=== PATIENT | female | born 1980 | race Caucasian/White ===

== ENCOUNTER 2018-05-22 14:26 | Outpatient (REF) | payer BC, SELFPAY ==
[2018-05-22 21:59] LABS: Abs Immature Grans 0.01 k/cumm (0.0-0.09); Absolute Basophil Count 0.05 k/cumm (0.0-0.2); Absolute Eosinophil Count 0.24 k/cumm (0.0-0.7); Absolute Lymphocyte Count 2.43 k/cumm (1.2-3.4); Absolute Monocyte Count 0.46 k/cumm (0.11-0.7); Absolute Neutrophil Count 3.68 k/cumm (1.2-6.7); Basophils % 0.7; Eosinophils % 3.5; HCT 44.1 % (36.0-46.0); HGB 14.5 g/dL (12.0-15.5); Immature Grans % 0.1; Lymphocytes % 35.4; Mean Corp. HGB Concentration 32.9 g/dL (32.0-36.0); Mean Corpuscular Volume 91.1 fL (80-95); Mean Platelet Volume 11.4 fL (8.0-11.0); Monocytes % 6.7; Neutrophils % 53.6; Platelet Count 258 x1000/uL (130-400); RBC 4.84 m/cumm (4.00-5.20); RBC Distribution Width 12.6 % (11.7-14.6); White Blood Cell Count 6.87 k/cumm (4.4-10.8)
[2018-05-22 22:00] LABS: Anion Gap 9.9 mmol/L (3-11); BUN 19 mg/dL (7-18); CO2 28.1 mmol/L (21.0-32.0); CREATININE 0.97 mg/dL (0.55-1.02); Calcium 9.1 mg/dL (8.5-10.1); Chloride 104 mmol/L (98-107); Glucose 103 mg/dL (70-100); Potassium 3.9 mmol/L (3.5-5.1); Sodium 142 mmol/L (136-145)
[2018-05-22 22:40] LABS: Vitamin D 25 Total 40.2 ng/ml (30-100)
== END 2018-05-22 14:46 ==
LOC: NCHCN 14:26
PROVIDERS: PCP Family Medicine; Visit Provider Family Medicine
DX: M21.612 Bunion of left foot (principal); E55.9 Vitamin D deficiency, unspecified
CPT/HCPCS: 80048; 82306; 85025

== ENCOUNTER 2020-11-28 14:16 | Emergency (ER) | payer MEDICAID, SELFPAY ==
[2020-11-28] VITALS (45 sets, daily range): BP systolic 101–127; BP diastolic 42–83; PULSE 78–119; RESP 11–27; TEMP 36.4; O2SAT 95–99
--- NOTE | 2020-11-28 14:30 | RT.EKG_ITS ---
APPROVED REPORT Exam: Resting ECG Reason for Exam: tachycardia Patient Location: E HR:89 bpm ECG Measurements Heart Rate 89 AXIS GA 169 P 44 QRSd 99 QRS -24 QT 364 T 26 QTc 444 Conclusion Sinus rhythm...normal P axis, V-rate 60- 99 Low voltage, precordial leads...precordial leads <1.0mV sinus rhythm at 89, normal axis, no WPW, QTC 444, no HOCM, no STEMI, nondiagnostic EKG
[2020-11-28] MEDS: Normal Saline 1,000 ML 1000 ML IV ×2 (14:45→16:29)
--- NOTE | 2020-11-28 15:00 | W.ED.GENAD ---
Discharge Plan Disposition Patient Disposition: HOME Condition: Stable Discharge Details Clinical Impression: Hypokalemia, Hypomagnesemia, Dehydration, Tingling, Cramping of hands Primary Care Provider: Alicia Castro ED Provider: Levi Snyder Home Meds and New Rx's Prescriptions: Continued methylphenidate HCl 10 mg Tablet 10 mg PO QID RF: 0 Discharge Instructions Instructions: Dehydration (ED), Hypokalemia (ED), Hypomagnesemia (ED) Additional Instructions: Please return immediately to the emergency department if you develop any new or worsening symptoms, if your condition does not improve as expected, or if you become otherwise concerned. It is extremely important that you call soon as possible to make an appointment to be seen in follow-up for this visit by your primary care doctor. Referrals: Alicia Castro [Primary Care Provider] - Discharge Data Discharge Date/Time-TO BE ENTERED AT DEPARTURE: 11/28/20 19:10 Medical Decision Making <Gaye Oneill MD - Last Filed: 12/08/20 18:06> Aliyah Montero is a 40-year-old woman without reported history of major medical problems who presented to emergency department with hand cramping, hand and feet tingling, and lightheadedness. On exam patient appears mildly anxious but is overall well and nontoxic-appearing. Fine tremor bilateral hands. Grossly nonfocal neurologic exam. Concern for dehydration, metabolic/electrolyte derangement, other. Exam/history at this time is not consistent with meningitis, cerebrovascular accident, transverse myelitis, Guillain-Rankin?, sepsis, other acute emergent neurologic pathology. Plan for EKG, chest x-ray, IV placement, screening labs, UA, urine , IV fluid hydration. Will monitor and reassess. Labs reviewed, K 2.6, Mg 1.6. Cr 0.7. Suspect hypokalemia, hypomagnesemia in addition to dehydration as etiology of Pt's symptoms. Will replete, continue IVF hydration. Plan for repeat BMP, Mg after repletion. Pt reassessed, reports feeling significantly improved. Denies any further symptoms. Reports feeling well and back to baseline. I had a lengthy discussion with Pt re: safe alcohol use. Pt signed out to Dr. Snyder at shift change with repeat labs pending. Medical Records Medical records reviewed: Yes I reviewed the patient's medical records. Lab Data Lab results reviewed: Yes I reviewed the patient's lab results. Labs: 11/28/20 15:25 Urine - Reflex from Ua Urine Culture - Final Gram Positive Taty,Mixed Laboratory Tests Range/Units 11/28/20 11/28/20 11/28/20 14:20 15:05 15:25 Sodium Cancelled 142 Potassium Cancelled 2.8 L* Chloride Cancelled 107 Carbon Dioxide Cancelled 24.5 Anion Gap Cancelled 10.5 BUN Cancelled 10 Creatinine Cancelled 0.7 Estimated GFR/1.73 m2 Cancelled >= 60.00 Glucose Cancelled 96 Calcium Cancelled 8.2 L Magnesium Cancelled 1.6 L Total Bilirubin Cancelled 0.5 AST Cancelled 25 ALT Cancelled 33 Alkaline Phosphatase Cancelled 48 Total Protein Cancelled 6.2 L Albumin Cancelled 3.5 Vitamin B12 Cancelled 298 TSH Cancelled 1.34 Urine Color (Yellow) Yellow Urine Clarity (Clear) Cloudy Urine pH (5-8) 6.0 Ur Specific [place] (1.005-1.025) 1.025 Urine Protein (Negative) mg/dL Trace H Urine Ketones (Negative) mg/dL >=160 H Urine Blood (Negative) Negative Urine Nitrite (Negative) Negative Urine Bilirubin (Negative) Negative Urine Urobilinogen (Up TO 0.2) EU/dL 0.2 Ur Leukocyte Esterase (Negative) Negative Urine RBC (0-2) HPF 0-2 Urine WBC (0-5) HPF 3-5 Ur Epithelial Cells (Negative) HPF Few Urine Crystals (Negative) HPF Negative Urine Bacteria (Negative) HPF Many Urine Casts (Negative) LPF Negative Urine Mucus (Negative) Negative Ur Culture Indicated? Yes Urine Glucose (Negative) mg/dL Negative Range/Units 11/28/20 18:15 Sodium 142 Potassium 3.9 D Chloride 109 H Carbon Dioxide 24.6 Anion Gap 8.4 BUN 10 Creatinine 0.6 Estimated GFR/1.73 m2 >= 60.00 Glucose 91 Calcium 8.0 L Magnesium 2.7 H Total Bilirubin AST ALT Alkaline Phosphatase Total Protein Albumin Vitamin B12 TSH Urine Color (Yellow) Urine Clarity (Clear) Urine pH (5-8) Ur Specific [place] (1.005-1.025) Urine Protein (Negative) mg/dL Urine Ketones (Negative) mg/dL Urine Blood (Negative) Urine Nitrite (Negative) Urine Bilirubin (Negative) Urine Urobilinogen (Up TO 0.2) EU/dL Ur Leukocyte Esterase (Negative) Urine RBC (0-2) HPF Urine WBC (0-5) HPF Ur Epithelial Cells (Negative) HPF Urine Crystals (Negative) HPF Urine Bacteria (Negative) HPF Urine Casts (Negative) LPF Urine Mucus (Negative) Ur Culture Indicated? Urine Glucose (Negative) mg/dL ECG Data Attestation: I personally reviewed and interpreted this ECG (s) as follows: Interpretation: EKG shows sinus rhythm at 89, normal axis, no WPW, QTC 444, no HOCM, no STEMI, nondiagnostic EKG <Levi Snyder MD - Last Filed: 11/28/20 19:08> pt now asymptomatic and feels well, repeat electrolytes normalized. Will d/c and have her f/u with pcp, return precautions given HPI <Gaye Oneill MD - Last Filed: 12/08/20 18:06> General Mode of arrival: ambulatory. Date/Time Provider Initiated Documentation: 11/28/20 14:23. Limitations to Documentation: no limitations. Information obtained by: patient, RN notes reviewed and old records reviewed. HPI Narrative: Aliyah Montero is a 40-year-old woman without reported history of major medical problems presenting to the emergency department with chief complaint hand cramping. Patient reports that approximately 30 minutes ago she was driving her car when she felt sudden onset tingling in both of her hands. She then developed tingling in both of her feet. Patient reports that then she felt cramping of her fingers and wrists, with flexion of fingers and wrist on both sides. Patient reports that cramping lasted for a few minutes and then resolved. Patient tingling in her feet also resolved. She reports that she has continued tingling in both her hands, and tremor in both of her hands. She also reports that she feels mildly lightheaded. Patient reports that there were no preceding events in the car, however she noted that it is hot outside and she did feel quite hot while driving before symptoms began. Patient reports that she typically drinks 6-8 drinks per week, however she states that she had 8 drinks or so last night. She slept in a cabin without air conditioning. Patient reports that she typically take methylphenidate 4 times daily, but has not taken any today (patient reports that she does take this medication regularly and does not usually miss days, however forgot to take any today). Patient reports that she has had normal appetite. She denies any pain, fever, shortness of breath, cough, vomiting, diarrhea, localized weakness, rash. Patient reports that she uses marijuana with last use yesterday. She denies tobacco or nicotine use. Related Data Home Medications Medication Instructions Recorded Confirmed methylphenidate HCl 10 mg PO QID 11/28/20 Allergies Allergy/AdvReac Type Severity Reaction Status Date / Time Sulfa (Sulfonamide AdvReac Unverified 11/28/20 14:24 Antibiotics) General Stated Complaint: [facility] ALYSSA: 3 Review of Systems <Gaye Oneill MD - Last Filed: 12/08/20 18:06> Narrative: Constitutional: denies fevers Eyes: denies eye pain ENT: denies ear pain, dental pain, sore throat Cardiovascular: denies chest pain, edema Respiratory: denies SOB, cough GI: denies abdominal pain, vomiting, diarrhea : denies flank pain MSK: denies back pain, neck pain, arthralgias, myalgias, reports finger and wrist cramping as per HPI Skin: denies rash Neuro: denies headaches, localized weakness, reports tingling bilateral hands and feet as per HPI PFSH <Gaye Oneill MD - Last Filed: 12/08/20 18:06> Social History Smoking/Tobacco Use Status: Former Tobacco Use Tobacco: How many years used: 10 Smoking risk assessment performed?: Yes Alcohol Intake: current Alcohol Intake frequency: a few times a week Alcohol type: beer Drug use: Daily Substance use type: marijuana Do you feel safe at home: Yes Do you feel safe in your relationship?: Yes Exam <Gaye Oneill MD - Last Filed: 12/08/20 18:06> Narrative Exam Narrative: Constitutional: well and [id number], pleasant, conversing normally HENT: head atraumatic/normocephalic/normal inspection, mucous membranes moist Eyes: conjunctiva normal, sclera normal, pupils 3mm b/l Neck: no stridor, normal ROM, trachea midline Chest: normal inspection Resp: normal work of breathing, LCTAB Cardio: normal rate, normal rhythm, no murmur appreciated Skin: warm, dry, normal color, no rash Neuro: alert, not altered, cranial nerves intact, motor 5/5 bilateral upper and lower extremities, normal tone, fine tremor bilateral hands Ext: no edema Psych: Somewhat anxious, normal affect, normal behavior Course <Gaye Oneill MD - Last Filed: 12/08/20 18:06> Vital Signs Vital signs: Vital Signs Pulse 119 H 11/28/20 14:16 Respiratory Rate 23 11/28/20 14:16 Blood Pressure 127/42 L 11/28/20 14:16 Pulse Oximetry 98 11/28/20 14:16 Temperature 36.4 C L 11/28/20 14:18 Temperature Source Skin 11/28/20 14:18 Pulse 96 H 11/28/20 14:30 Pulse 105 H 11/28/20 14:31 Respiratory Rate 19 11/28/20 14:31 Respiratory Effort 11/28/20 14:29 Blood Pressure 117/66 11/28/20 14:30 Blood Pressure Mean 77 11/28/20 14:30 Blood Pressure Position Supine 11/28/20 14:18 Pulse Oximetry 99 11/28/20 14:31 Oxygen Delivery Method Room Air 11/28/20 14:18 Oxygen Flow Rate 0 11/28/20 14:18 Lab/Test Results Lab/Test Results: Laboratory Tests Range/Units 11/28/20 14:20 Sodium Cancelled Potassium Cancelled Chloride Cancelled Carbon Dioxide Cancelled Anion Gap Cancelled BUN Cancelled Creatinine Cancelled Estimated GFR/1.73 m2 Cancelled Glucose Cancelled Calcium Cancelled Magnesium Cancelled Total Bilirubin Cancelled AST Cancelled ALT Cancelled Alkaline Phosphatase Cancelled Total Protein Cancelled Albumin Cancelled Vitamin B12 Cancelled TSH Cancelled Sign Out <Gaye Oneill MD - Last Filed: 12/08/20 18:06> Sign Out Data: Sign Out Comment: Pt signed out to Dr. Snyder at time of shift change with med infusions, repeat labs, reassessment pending. Last updated by Gaye Oneill MD at 11/28/20 16:53
--- NOTE | 2020-11-28 15:15 | DI.RAD_ITS ---
Exam(s) XR PORTABLE CHEST AP EXAM: XR PORTABLE CHEST AP CLINICAL HISTORY: near syncope TECHNIQUE: 2D digital imaging was performed. COMPARISON: No exams were available for comparison FINDINGS: LUNGS: Clear. No pleural abnormality seen. HEART: Normal. MEDIASTINUM: Normal. BONES: Unremarkable. IMPRESSION: No acute pulmonary findings. DATA REPOSITORY: RADIATION DOSE DELIVERED:
[2020-11-28 15:39] LABS: Bilirubin Negative (Negative); Blood Negative (Negative); Clarity Cloudy (Clear); Glucose Negative (Negative); Ketones >=160 mg/dL (Negative); Leukocyte Esterase Negative (Negative); Nitrite Negative (Negative); Specific Gravity 1.025 (1.005-1.025); Urobilinogen 0.2 EU/dL (Up TO 0.2)
[2020-11-28 15:53] LABS: Bacteria Many HPF (Negative); C & S Indicated? Yes; Casts Negative LPF (Negative); Crystals Negative HPF (Negative); Epithelial Cells Few HPF (Negative); Mucus Negative (Negative); RBC 0-2 HPF (0-2)
[2020-11-28 15:53] LABS: ALT 33 U/L (14-59); AST 25 U/L (15-37); Albumin 3.5 g/dL (3.4-5.0); Alkaline Phosphatase 48 U/L (46-116); Anion Gap 10.5 mmol/L (3-11); BUN 10 mg/dL (7-18); Bilirubin, Total 0.5 mg/dL (0.2-1.0); CO2 24.5 mmol/L (21.0-32.0); CREATININE 0.7 mg/dL (0.55-1.02); Calcium 8.2 mg/dL (8.5-10.1); Chloride 107 mmol/L (98-107); Glucose 96 mg/dL (74-106); Magnesium 1.6 mg/dL (1.8-2.4); Sodium 142 mmol/L (136-145); TSH (W/Ref FT4) 1.34 uIU/mL (0.36-3.74); Total Protein 6.2 g/dL (6.4-8.2); Vitamin B12 298 pg/mL (193-986)
[2020-11-28 15:56] LABS: Potassium 2.8 mmol/L (3.5-5.1)
[2020-11-28] MEDS: Potassium Chloride 20 MEQ TABCR 40 MEQ PO (16:10)
[2020-11-28] MEDS: MAGNESIUM SULFATE 2 GM/50 ML BAG IVPB (16:10)
[2020-11-28] MEDS: POTASSIUM CHLORIDE 20 MEQ/100 ML BAG 50 MEQ IVPB (16:14)
[2020-11-28] MEDS: Ondansetron 4 MG/2 ML VIAL IVP (16:28)
[2020-11-28 18:29] LABS: Anion Gap 8.4 mmol/L (3-11); BUN 10 mg/dL (7-18); CO2 24.6 mmol/L (21.0-32.0); CREATININE 0.6 mg/dL (0.55-1.02); Chloride 109 mmol/L (98-107); Glucose 91 mg/dL (74-106); Magnesium 2.7 mg/dL (1.8-2.4); Sodium 142 mmol/L (136-145)
[2020-11-28 18:38] LABS: Potassium 3.9 mmol/L (3.5-5.1)
== END 2020-11-28 19:10 | disposition home or self-care (01) ==
PROVIDERS: Student in an Organized Health Care Education/Training Program; Emergency Provider Emergency Medicine; PCP Family Medicine
DX: E87.6 Hypokalemia (principal); E83.42 Hypomagnesemia; E86.0 Dehydration; R20.2 Paresthesia of skin; R25.2 Cramp and spasm; R42 Dizziness and giddiness
CPT/HCPCS: 36415; 80048; 80053; 81025; 93005; 96361; 96365; 96366; 96368; 96375; 99284; 71045; 81003; 81015; 82607; 83735; 84443; 87086; 93010; J2405; J3480

== ENCOUNTER 2023-05-31 22:42 | Outpatient (REF) | payer MEDICAID, SELFPAY ==
[2023-05-31 21:31] LABS: HCT 43.3 % (36.0-46.0); HGB 14.7 g/dL (11.2-15.7); MCH 30.6 pg (27.0-33.0); MCHC 33.9 % (32.0-36.0); MCV 90 fL (80-95); MPV 10.5 fL (8.0-11.0); Platelet Count 338 10^3/uL (130-400); RBC 4.81 10^6/uL (3.93-5.22); RDW-SD 39.8 fL; WBC 8.43 10^3/uL (4.4-10.8)
[2023-05-31 21:50] LABS: ALT 45 U/L (14-59); AST 26 U/L (15-37); Albumin 3.8 g/dL (3.4-5.0); Alkaline Phosphatase 82 U/L (46-116); Anion Gap 7.7 mmol/L (3-11); BUN 12 mg/dL (7-18); Bilirubin, Total 0.2 mg/dL (0.2-1.0); CO2 29.3 mmol/L (21.0-32.0); CREATININE 0.8 mg/dL (0.55-1.02); Calcium 9.2 mg/dL (8.5-10.1); Chloride 103 mmol/L (98-107); Cholesterol 284 mg/dL (<200); Estimated GFR 94.87 (mL/min/1.73m2); Glucose 102 mg/dL (74-106); HDL Cholesterol 42 mg/dL (40-60); Potassium 4.1 mmol/L (3.5-5.1); Sodium 140 mmol/L (136-145); Total Protein 7.6 g/dL (6.4-8.2); Triglyceride 424 mg/dL (<150)
[2023-05-31 22:04] LABS: LDL CHOLESTEROL 175 mg/dL (<100)
== END 2023-05-31 22:43 | disposition home or self-care (01) ==
LOC: NCHCN 22:42
PROVIDERS: PCP Family Medicine; Visit Provider Family Medicine
DX: R05.9 Cough, unspecified (principal); E78.5 Hyperlipidemia, unspecified
CPT/HCPCS: 80053; 80061; 83721; 85027

== ENCOUNTER 2023-10-09 05:09 | Outpatient (CLI) | payer MEDICAID, SELFPAY ==
--- NOTE | 2023-10-15 13:07 | W.NUTRFU ---
Date of service: 10/09/23 Time of Service: 13:30 Nutrition Note NOTE: Aliyah had requested a phone call for her nutrition appt due to a hectic schedule and long drive from [place]. Referred for diet management for HLD. Prescribed Crestor on 10/03 but has not started taking yet - wants to work on diet. Would also like to lose weight. She states she has stopped etoh use entirely and trying to cut back on pasta/breads. Is interested in fasting as a tool and asked about this - let her know if doing I-F she still needs to meet her fiber and protein needs as a priority and really meal plan. She tends to be very busy with work and can have inconsstent eating pattern and will make worse choices if she gets too hungry. For diet approach towards HLD and wt mgt suggested she create a template for a good day of eating - map out the frequency and eat at least 3 meals and 0-2 planned snacks, trying to go about 3 hours between eating and stay active as much as possible - prioritized staying very hydrated as well. Reviewed list of great food choices to help improve lipid profile and highlighted plant based diet of whole food choices and minimally processed foods. Highlighted legumes, nuts/seeds, garlic/onion, berries, greens, oats, non-starchy veggies of all kinds, whole soy like edamame and unsweet soy milk, fatty fish like salmon and kennedy, tuna. Encouraged focusing meals on less starch and more fiber/plant protein - aim for 1/2 cup of beans/lentils at least 3x per week, include nuts with fruit as a snack. Also reviewed limiting added sugar is HUGE in her goals and should not be going over 25 g per day -reviewed with her how to track and compare to see where other changes need to occur. I will check back with Aliyah with a phone call in about a month's time to see how she is doing with making progress with her meal planning. Time Spent in Nutritional Counseling and Treatment: 30 minutes
== END 2023-10-09 05:10 | disposition home or self-care (01) ==
LOC: DS 05:09
PROVIDERS: PCP Family Medicine; Visit Provider Dietitian, Registered
DX: E78.5 Hyperlipidemia, unspecified (principal); Z71.3 Dietary counseling and surveillance
CPT/HCPCS: 00123; 97802

== ENCOUNTER 2024-03-13 16:29 | Outpatient (REF) | payer MEDICAID, SELFPAY ==
[2024-03-13 15:15] LABS: Calculated LDL 182 mg/dL (<100); Cholesterol 279 mg/dL (<200); HDL Cholesterol 64 mg/dL (40-60); Triglyceride 166 mg/dL (<150)
== END 2024-03-13 16:30 | disposition home or self-care (01) ==
LOC: NCHCN 16:29
PROVIDERS: PCP Family Medicine; Visit Provider Family Medicine
DX: E78.5 Hyperlipidemia, unspecified (principal)
CPT/HCPCS: 80061